=== PATIENT | female | born 1975 | race Caucasian/White ===

== ENCOUNTER 2018-05-02 17:24 | Emergency (ER) | payer SELFPAY ==
[~2018-05-02] VITALS: Ht 177.8 cm; Wt 83.9 kg
[2018-05-02] MEDS ORDERED: DIAZEPAM 5 MG/ML 2 ML DISP.SYRIN IV ONE (18:00)
[2018-05-02] MEDS ORDERED: IV NS 0.9% 1,000 ML BAG IV ONE (18:00)
[2018-05-02] MEDS ORDERED: DIAZEPAM 5 MG TABLET ONE (18:47)
[2018-05-02] MEDS ORDERED: DIAZEPAM 5 MG TABLET PO ONE (19:00)
--- NOTE | 2018-05-02 19:32 | NUR ---
TOOK OVER CARE FROM DAY SHIFT. WILL CONTINUE TO MONITOR FOR ANY CHANGES DURING THE SHIFT.
[2018-05-02 21:01] VITALS: BP 131/71
== END 2018-05-02 21:02 | disposition home or self-care (01) ==
LOC: ER 17:33
DX: H81.10 Benign paroxysmal vertigo, unspecified ear (principal); Z88.2 Allergy status to sulfonamides
CPT/HCPCS: 99284; A4606; J7030; Z7610

== ENCOUNTER 2018-05-08 16:02 | Emergency (ER) | payer SELFPAY ==
[~2018-05-08] VITALS: Ht 170.2 cm; Wt 77.1 kg
--- NOTE | 2018-05-08 16:03 | NUR ---
42 YEAR OLD FEMALE C/O OF DIZINESS X1 WEEK, HAD NEAR SYNCOPE TODAY, NO TRAUMA. PATIENT IS ALERT AND ORIENTED X4, BREATHING EVEN AND UNALBORED WITH NO DISTRESS NOTED. SKIN INTACT AND WARM TO TOUCH. AWAITING TO BE SEEN BY .
[2018-05-08] MEDS ORDERED: DIAZEPAM 5 MG/ML 2 ML DISP.SYRIN IV ONE (17:00)
[2018-05-08] MEDS ORDERED: IV NS 0.9% 1,000 ML BAG IV ONE (17:00)
[2018-05-08 17:15] LABS: BASOPHILS # (AUTO) 0.1 /CMM (0.0-0.2); BASOPHILS % (AUTO) 1.7 % (0.0-2.0); EOSINOPHILS % (AUTO) 1.1 % (0.0-6.0); HEMATOCRIT 47 % (33-45); HEMOGLOBIN 15.5 g/dL (11.5-14.8); LYMPHOCYTES # (AUTO) 1.8 /CMM (0.8-4.8); LYMPHOCYTES % (AUTO) 27.5 % (20.0-44.0); MEAN CORPUSCULAR HGB CONC 33 g/dl (31.0-36.0); MEAN CORPUSCULAR VOLUME 90 fL (82-100); MONOCYTES # (AUTO) 0.4 /CMM (0.1-1.30); MONOCYTES % (AUTO) 6.3 % (2.0-12.0); NEUTROPHILS # (AUTO) 4.2 /CMM (1.8-8.9); NEUTROPHILS % (AUTO) 63.4 % (43.0-81.0); PLATELET COUNT (AUTO) 321 /CMM (150-450); RED BLOOD CELL COUNT(AUTO) 5.18 MIL/uL (4.0-5.2); WHITE BLOOD COUNT (AUTO) 6.7 K/uL (4.3-11.0)
--- NOTE | 2018-05-08 17:18 | NUR ---
INSPECTOR ASSEMBLY AT BEDSIDE
[2018-05-08 17:26] LABS: CREATININE 0.8 mg/dL (0.6-1.3); POTASSIUM 3.9 mmol/L (3.5-5.1)
--- NOTE | 2018-05-08 17:28 | NUR ---
APPLICATION DEVELOPER AT BEDSIDE TO TAKE PATIENT FOR CT SCAN
[2018-05-08 17:53] LABS: INR 1.02 (0.87-1.13)
[2018-05-08] MEDS ORDERED: DIAZEPAM 10 MG TABLET PO ONE (18:00)
[2018-05-08] MEDS ORDERED: DIAZEPAM 5 MG TABLET ONE (18:03)
--- NOTE | 2018-05-08 18:55 | NUR ---
PATIENT REMAINS STABLE WITH NO DISTRESS NOTED. WILL CONTINUE TO MONITOR
[2018-05-08 18:56] LABS: APPEARANCE,URINE Clear (CLEAR); BILIRUBIN,URINE Negative (NEGATIVE); BLOOD, URINE Negative Ery/uL (NEGATIVE); COLOR,URINE Light yellow (YELLOW); KETONES,URINE 15 (NEGATIVE); LEUKOCYTE ESTERASE ,URINE Negative (NEGATIVE); NITRITE, URINE Negative (NEGATIVE); PH,URINE 5.5 (5.0-8.0); PROTEIN,URINE Negative (NEGATIVE); UGLUCOSE Negative (NEGATIVE); UROBILINOGEN,URINE 0.2 EU/dL (0.2)
[2018-05-08 19:08] LABS: BACTERIA,URINE Rare /HPF (None Seen); RBC,URINE NONE SEEN /HPF (0-2); SQUAMOUS EPITHELIAL CELL,UR Few /HPF (None Seen); WBC,URINE NONE SEEN /HPF (0-3)
--- NOTE | 2018-05-08 19:27 | NUR ---
IV removed. Catheter intact and site benign. Pressure and 4x4 applied to site. No bleeding noted. Patient discharged to home in stable condition. Written and verbal after care instructions given. Patient verbalizes understanding of instructions. ambulatory with a steady gait
[2018-05-08 19:37] VITALS: BP 128/80
== END 2018-05-08 19:38 | disposition home or self-care (01) ==
LOC: ER 16:05
DX: R42 Dizziness and giddiness (principal); F17.200 Nicotine dependence, unspecified, uncomplicated; I45.10 Unspecified right bundle-branch block; Z88.2 Allergy status to sulfonamides
CPT/HCPCS: 36415; 70450; 71045; 80048; 80305; 81001; 82962; 84703; 85025; 85730; 93005; 96360; 99285; J7030; 81000-TC; A4606; Z7610